=== PATIENT | male | born 1950 | race Caucasian/White ===

== ENCOUNTER 2019-02-08 06:58 | Day surgery (SDC) | payer OTHER ==
[~2019-02-08 06:58] MED LIST: ACTOS15 MG PO; ASA81 MG PO; DAPSONE25 MG PO; FLONASE16 GM NASAL; TAMS0.4C PO; VITAMIN D35000 UNIT PO
[2019-02-08] MEDS ORDERED: NEURONTIN300 MG PO (13:35)
[2019-02-08] MEDS ORDERED: TRAMADOL HCL50 MG PO (13:35)
[2019-02-08] MEDS ORDERED: MIRALAX17 GM PO (13:35)
[2019-02-08] MEDS ORDERED: TYLENOL EXTRA500 MG PO (13:35)
[2019-02-08] MEDS ORDERED: ZOFRAN4 MG PO (13:35)
== END 2019-02-08 16:42 | disposition home or self-care (01) ==
LOC: CIR.AMB 06:58
DX: K40.90 Unilateral inguinal hernia, without obstruction or gangrene, not specified as recurrent (principal); K42.0 Umbilical hernia with obstruction, without gangrene